=== PATIENT | female | born 1975 ===

== ENCOUNTER 2025-10-27 09:21 | Outpatient (CLI) | payer OTHER | END 2025-10-27 09:24 | disposition home or self-care (01) | LOC: SONOGRAMA 09:21 | PROVIDERS: ATTEND Pathology Anatomic Pathology & Clinical Pathology | DX: D34 Benign neoplasm of thyroid gland (principal); E06.3 Autoimmune thyroiditis; E04.2 Nontoxic multinodular goiter ==